=== PATIENT | female | born 1990 | race American Indian/Alaskan Native ===

== ENCOUNTER 2022-04-28 02:35 | Emergency (ER) | payer OTHER ==
--- NOTE | 2022-04-28 09:01 | Electrocardiograph Report ---
[facility] Test Date: 2022-04-28 Test Time: 03:29:17 Pat Name: KIMBER BALLARD Department: Room: Gender: F [employer]ing Supervisor: EMILIE : 1990 Requested By: ED DOC Order Number: [id number] Reading MD: Rick Block Measurements Intervals [place] Rate: 84 P: 36 LA: 174 QRS: 48 QRSD: 93 T: 34 QT: 381 QTc: 450 Interpretive Statements Sinus rhythm No previous ECG available for comparison Electronically Signed On 04-28-2022 9:01:27 EDT by Rick Block
--- NOTE | 2022-04-28 09:41 | Emergency Department Report ---
ED General Adult HPI - General Chief complaint: Fever Stated complaint: CHEST TIGHTNESS/COVID+ Source: patient Mode of arrival: Ambulatory Limitations: No Limitations - History of Present Illness Initial comments: 31-year-old female presents to the ED complaining of cough ,fever ,shortness of breath ,nasal congestion chest tightness and left earache x3 days. Patient states that she was tested positive at home for COVID x 4 days ago. Patient states taking gobm-orc-nigzaby medication Mucinex ,Tylenol, Motrin Sudafed ,NyQuil and herbal medication without any relief. Patient is alert and oriented x3. No acute distress noted. No ill appearance noted. Improves with: none Worsens with: none Associated Symptoms: denies other symptoms - Related Data Previous Rx's Medication Instructions Recorded Last Taken Type Acetaminophen/Codeine [Tylenol 1 tab PO Q4HR PRN 3 Days #12 tablet 04/28/22 Unknown Rx /Codeine # 3 tab] Ibuprofen [Motrin] 800 mg PO Q8HR PRN 15 Days #30 04/28/22 Unknown Rx tablet Allergies Allergy/AdvReac Type Severity Reaction Status Date / Time No Known Allergies Allergy Verified 04/28/22 03:44 ED Review of Systems ROS: Stated complaint: CHEST TIGHTNESS/COVID+ Other details as noted in HPI Constitutional: chills, fever Eyes: denies: eye pain, eye discharge, vision change ENT: denies: ear pain, throat pain Respiratory: cough. denies: shortness of breath, wheezing Cardiovascular: denies: chest pain, palpitations Endocrine: no symptoms reported Gastrointestinal: denies: abdominal pain, nausea, diarrhea Genitourinary: denies: urgency, dysuria, discharge Musculoskeletal: denies: back pain, joint swelling, arthralgia Skin: denies: rash, lesions Neurological: denies: headache, weakness, paresthesias Psychiatric: denies: anxiety, depression Hematological/Lymphatic: denies: easy bleeding, easy bruising ED Past Medical Hx - Medications Home Medications: Home Medications Medication Instructions Recorded Confirmed Last Taken Type Acetaminophen/Codeine [Tylenol 1 tab PO Q4HR PRN 3 Days #12 tablet 04/28/22 Unknown Rx /Codeine # 3 tab] Ibuprofen [Motrin] 800 mg PO Q8HR PRN 15 Days #30 04/28/22 Unknown Rx tablet ED Physical Exam - General Limitations: No Limitations General appearance: alert, in no apparent distress - Head Head exam: Present: atraumatic, normocephalic - Eye Eye exam: Present: normal appearance - ENT ENT exam: Present: mucous membranes moist - Neck Neck exam: Present: normal inspection - Respiratory Respiratory exam: Present: normal lung sounds bilaterally. Absent: respiratory distress - Cardiovascular Cardiovascular Exam: Present: regular rate, normal rhythm. Absent: systolic murmur, diastolic murmur, rubs, gallop - GI/Abdominal GI/Abdominal exam: Present: soft, normal bowel sounds - Extremities Exam Extremities exam: Present: normal inspection - Back Exam Back exam: Present: normal inspection - Neurological Exam Neurological exam: Present: alert, oriented X3 - Psychiatric Psychiatric exam: Present: normal affect, normal mood - Skin Skin exam: Present: warm, dry, intact, normal color. Absent: rash ED Course Vital Signs 04/28/22 03:16 Temperature 98.7 F Pulse Rate 86 Respiratory 18 Rate Blood Pressure 154/109 O2 Sat by Pulse 100 Oximetry ED Medical Decision Making - Medical Decision Making 31-year-old female presents to the ED complaining of cough ,fever ,shortness of breath ,nasal congestion chest tightness and left earache x3 days. Patient states that she was tested positive at home for COVID x 4 days ago. Patient states taking lelt-ifn-xvaomnd medication Mucinex ,Tylenol, Motrin Sudafed ,NyQuil and herbal medication without any relief. Patient is alert and oriented x3. No acute distress noted. No ill appearance noted. Physical examination is unremarkable, verbal report from Dr. Carrero radiology chest x-ray is negative. Rechecked the patient is resting quietly quietly and comfortable and feeling better. I discussed the results of diagnostic study, my clinical impression and the plan for further treatment with the patient. Patient agrees with plan and discharge at this present time. All question addressed. I have given the patient instruction regarding a diagnosis ,expectation ,follow- up and return precaution. I explained to the patient that emergent condition may arise and to return to the ED for new worsen and any new persisting condition. I have explained the importance of following up with the primary care physician or referral physician listed below has instructed. The patient verbalized understanding of discharge instruction. Critical care attestation.: If time is entered above; I have spent that time in minutes in the direct care of this critically ill patient, excluding procedure time. ED Disposition Clinical Impression: COVID Disposition: 01 HOME / SELF CARE / HOMELESS Is pt being admited?: No Does the pt Need Aspirin: No Condition: Stable Instructions: COVID-19 Frequently Asked Questions, COVID-19: How to Protect Yourself and Others - CDC, Prevent the Spread of COVID-19 if You Are Sick - [facility] Additional Instructions: Take medication as prescribed Return to ED for any worsening symptom Prescriptions: Ibuprofen [Motrin] 800 mg PO Q8HR PRN 15 Days #30 tablet PRN Reason: Pain, Mild (1-3) Acetaminophen/Codeine [Tylenol /Codeine # 3 tab] 1 tab PO Q4HR PRN 3 Days #12 tablet PRN Reason: Pain Referrals: LUIS ALFREDO FERNANDES MD [Primary Care Provider] - 3-5 Days Forms: Work/School Release Form(ED) Time of Disposition: 10:20
[2022-04-28 10:37] VITALS: BP 134/86
--- NOTE | 2022-04-28 17:43 | XRay Report ---
CHEST 2 VIEWS INDICATION / CLINICAL INFORMATION: COVID +. COMPARISON: None available. FINDINGS: SUPPORT DEVICES: None. HEART / MEDIASTINUM: No significant abnormality. LUNGS / PLEURA: No significant pulmonary or pleural abnormality. No pneumothorax. ADDITIONAL FINDINGS: No significant additional findings. IMPRESSION: 1. No acute findings. Signer Name: Rito Brock DO Signed: 04/28/2022 5:35 PM Workstation Name: [email or web address]
== END 2022-04-28 10:37 | disposition home or self-care (01) ==
LOC: ED 02:35
DX: U07.1 COVID-19 (principal)
CPT/HCPCS: 71046; 93005; 99283